=== PATIENT | female | born 1960 | race Caucasian/White ===

== ENCOUNTER 2017-12-06 18:53 | Inpatient (IN) | payer OTHER ==
[2017-12-06] MEDS: predniSONE 20 MG TAB PO (22:11)
[2017-12-06] MEDS: ASPIRIN 81 MG TAB PO (22:11)
[2017-12-06 22:29] LABS: ADD MAN DIFF? NO
[2017-12-06 22:32] LABS: BASOPHIL # 0.1 10^3/ul (0.0-0.1); BASOPHILS % 0.7 % (0.0-2.0); EOSINOPHILS # 0.3 10^3/ul (0.0-0.5); EOSINOPHILS % 3.1 % (0.0-7.0); HEMATOCRIT 40.9 % (37.0-47.0); HEMOGLOBIN 14.2 g/dl (12.0-16.0); LYMPHOCYTES # 3.8 10^3/ul (0.8-2.9); LYMPHOCYTES % 43.4 % (15.0-51.0); MEAN CORPUSCULAR HGB CONC 34.7 g/dl (32.0-37.0); MEAN CORPUSCULAR VOLUME 95.1 fl (82.0-101.0); MEAN PLATELET VOLUME 10.3 fl (7.4-10.4); MONOCYTE # 0.6 10^3/ul (0.3-0.9); MONOCYTES % 6.6 % (0.0-11.0); PLATELET COUNT 264 10^3/UL (140-415); RED CELL DISTRIBUTION WIDTH 13.6 % (11.5-14.5)
[2017-12-06 22:32] LABS: WHITE BLOOD COUNT 8.7 10^3/ul (4.8-10.8)
[2017-12-06] MEDS: ALBUTEROL 0.5% (NEB) 2.5 MG/0.5 ML AMP INH (22:32)
[2017-12-06] MEDS: IPRATROPIUM (NEB) 0.5 MG/2.5 ML AMP INH (22:32)
[2017-12-06 22:38] LABS: ALANINE AMINOTRANSFERASE 26 IU/L (13-69); ALBUMIN 4.1 g/dl (3.3-4.9); ALBUMIN/GLOBULIN RATIO 1.46; ALKALINE PHOSPHATASE 55 IU/L (42-121); ANION GAP 14 (8-16); ASPARTATE AMINO TRANSFERASE 19 IU/L (15-46); BLOOD UREA NITROGEN 15 mg/dl (7-20); CALCIUM 9.5 mg/dl (8.4-10.2); CARBON DIOXIDE 26 mmol/L (21-31); CHLORIDE 106 mmol/L (97-110); CREATININE 0.56 mg/dl (0.44-1.00); GLUCOSE 120 mg/dl (70-220); SODIUM 142 mmol/L (135-144); TOTAL PROTEIN 6.9 g/dl (6.1-8.1)
[2017-12-06 23:01] LABS: TROPONIN-I < 0.012 ng/ml (0.00-0.12)
[2017-12-07] MEDS ORDERED: ALBUTEROL/IPRATROPIUM (NEB) 3 ML AMP HHN (01:00)
[2017-12-07] MEDS: ALBUTEROL/IPRATROPIUM (NEB) 3 ML AMP HHN ×4 (02:00→20:52)
[2017-12-07] MEDS: PANTOPRAZOLE (EC) 40 MG TAB PO (05:15)
[2017-12-07 05:38] LABS: ADD MAN DIFF? NO
[2017-12-07 05:41] LABS: BASOPHILS % 0.3 % (0.0-2.0); EOSINOPHILS % 0.1 % (0.0-7.0); HEMATOCRIT 41.3 % (37.0-47.0); LYMPHOCYTES % 14.8 % (15.0-51.0); MEAN CORPUSCULAR HEMOGLOBIN 32.2 pg (29.0-33.0); MEAN CORPUSCULAR HGB CONC 33.9 g/dl (32.0-37.0); MEAN CORPUSCULAR VOLUME 94.9 fl (82.0-101.0); MEAN PLATELET VOLUME 10.3 fl (7.4-10.4); MONOCYTE # 0.1 10^3/ul (0.3-0.9); MONOCYTES % 1.2 % (0.0-11.0); NEUTROPHIL # 5.6 10^3/ul (1.6-7.5); NEUTROPHILS % 83.5 % (39.0-77.0); PLATELET COUNT 261 10^3/UL (140-415); RED BLOOD COUNT 4.35 10^6/ul (4.20-5.40); RED CELL DISTRIBUTION WIDTH 13.6 % (11.5-14.5)
[2017-12-07 05:41] LABS: WHITE BLOOD COUNT 6.8 10^3/ul (4.8-10.8)
[2017-12-07 06:01] LABS: ALANINE AMINOTRANSFERASE 24 IU/L (13-69); ALBUMIN 4.1 g/dl (3.3-4.9); ALKALINE PHOSPHATASE 48 IU/L (42-121); ANION GAP 13 (8-16); ASPARTATE AMINO TRANSFERASE 16 IU/L (15-46); BLOOD UREA NITROGEN 13 mg/dl (7-20); CALCIUM 9.6 mg/dl (8.4-10.2); CARBON DIOXIDE 27 mmol/L (21-31); CHLORIDE 109 mmol/L (97-110); GLUCOSE 152 mg/dl (70-220); POTASSIUM 4.2 mmol/L (3.5-5.1); SODIUM 145 mmol/L (135-144); TOTAL PROTEIN 6.5 g/dl (6.1-8.1)
[2017-12-07 06:19] LABS: TROPONIN-I < 0.012 ng/ml (0.00-0.12)
[2017-12-07] MEDS: ASPIRIN (EC) 81 MG TAB PO (08:21)
[2017-12-07 13:11] LABS: TROPONIN-I < 0.012 ng/ml (0.00-0.12)
[2017-12-07 18:29] LABS: TROPONIN-I < 0.012 ng/ml (0.00-0.12)
[2017-12-07] MEDS: ATORVASTATIN 20 MG TAB PO (20:10)
[2017-12-07] MEDS: predniSONE 20 MG TAB PO (20:10)
[2017-12-07] MEDS: NICOTINE (14 MG/24 HR) PATCH TRANSDERM (20:10)
[2017-12-08] MEDS: ALBUTEROL/IPRATROPIUM (NEB) 3 ML AMP HHN ×4 (02:27→19:34)
[2017-12-08] MEDS: PANTOPRAZOLE (EC) 40 MG TAB PO (05:07)
[2017-12-08 05:44] LABS: CHOLESTEROL 270 mg/dl (100-200)
[2017-12-08 05:44] LABS: CHOL/HDL RATIO 3.2 RATIO; HDL CHOLESTEROL 83 mg/dl (35-98); LDL CHOLESTEROL,CALCULATED 169 mg/dl; TRIGLYCERIDES 92 mg/dl (0-149)
[2017-12-08 06:10] LABS: THYROID STIMULATING HORMONE 0.121 MIU/L (0.465-4.680)
[2017-12-08] MEDS: ASPIRIN (EC) 81 MG TAB PO (08:09)
[2017-12-08] MEDS ORDERED: NITROGLYCERIN (SL) 0.4 MG TAB SL (13:30)
[2017-12-08] MEDS: predniSONE 20 MG TAB PO (16:24)
[2017-12-08] MEDS: ATORVASTATIN 40 MG TAB PO (20:59)
[2017-12-09] MEDS: ALBUTEROL/IPRATROPIUM (NEB) 3 ML AMP HHN ×3 (01:14→16:06)
[2017-12-09] MEDS: PANTOPRAZOLE (EC) 40 MG TAB PO (05:52)
[2017-12-09] MEDS: ASPIRIN (EC) 81 MG TAB PO (08:02)
[2017-12-09] MEDS: REGADENOSON 0.4 MG/5 ML SYG (11:40)
[2017-12-09] MEDS: NICOTINE (14 MG/24 HR) PATCH TRANSDERM (14:46)
== END 2017-12-09 17:12 | disposition home or self-care (01) | DRG 192 ==
LOC: MS3 23:01 → E/R 18:53 → MS3 12-07 04:40
DX: J44.1 Chronic obstructive pulmonary disease with (acute) exacerbation (principal); I10 Essential (primary) hypertension; E78.00 Pure hypercholesterolemia, unspecified; F17.210 Nicotine dependence, cigarettes, uncomplicated; R07.89 Other chest pain; R94.31 Abnormal electrocardiogram [ECG] [EKG]
CPT/HCPCS: 71045; 78452; 80053; 80061; 84443; 84484; 85025; 87400; 93005; 93017; 93306; 94640; 94664; 99285-25

== ENCOUNTER 2018-05-21 09:00 | Emergency (ER) | payer OTHER ==
[2018-05-21] MEDS: LIDOCAINE 1% (MDV) 20 ML INJ SC (09:45)
== END 2018-05-21 11:23 | disposition home or self-care (01) ==
LOC: FTE 09:00
DX: L73.2 Hidradenitis suppurativa (principal); J44.9 Chronic obstructive pulmonary disease, unspecified; I10 Essential (primary) hypertension; Z79.82 Long term (current) use of aspirin; Z87.891 Personal history of nicotine dependence
CPT/HCPCS: 10060; 99283-25